=== PATIENT | male | born 1955 | race Caucasian/White ===

== ENCOUNTER 2018-09-15 06:37 | Emergency (ER) | payer MEDICARE, MEDICAID ==
[~2018-09-15] VITALS: Ht 177.8 cm; Wt 81.8 kg
[2018-09-15 06:39] VITALS: BP 150/74
[2018-09-15] MEDS ORDERED: VAL5T PO (07:50)
[2018-09-15] MEDS ORDERED: METH500T PO (07:50)
== END 2018-09-15 08:04 | disposition home or self-care (01) ==
LOC: ER 06:40
DX: S29.012A Strain of muscle and tendon of back wall of thorax, initial encounter (principal); Z79.899 Other long term (current) drug therapy; Z87.891 Personal history of nicotine dependence; X58.XXXA Exposure to other specified factors, initial encounter; Y93.89 Activity, other specified; Y92.89 Other specified places as the place of occurrence of the external cause; Y99.8 Other external cause status
CPT/HCPCS: 71046; 99283